=== PATIENT | female | born 1980 | race Caucasian/White ===

== ENCOUNTER 2023-11-14 11:55 | Outpatient (CLI) | payer MEDICAID ==
[~2023-11-14 11:55] MED LIST: CLIN-26 PO; NAPR-1154 PO; NO HOME MEDS; TRAM50TA2 PO
== END 2023-11-14 23:59 | disposition home or self-care (01) ==
LOC: RAD 11:55
PROVIDERS: ATTEND General Practice
DX: R76.11 Nonspecific reaction to tuberculin skin test without active tuberculosis (principal)
CPT/HCPCS: 71046